=== PATIENT | male | born 1970 | race American Indian/Alaskan Native ===

== ENCOUNTER 2017-01-07 18:16 | Emergency (ER) | payer OTHER ==
[2017-01-07 19:19] LABS: Basophils % (Auto) 0.8 % (0.0-1.8); Eosinophils % (Auto) 2.1 % (0.0-4.3); Hematocrit 42.5 % (35.5-45.6); Hemoglobin 14.3 gm/dl (11.8-15.2); Mean Corpuscular HGB Conc 34 % (32-34); Mean Corpuscular Hemoglobin 26 pg (28-32); Mean Corpuscular Volume 78 fl (84-94); Platelet Count 404 K/mm3 (140-440); Red Blood Count 5.45 M/mm3 (3.65-5.03); Red Cell Distribution Width 16.9 % (13.2-15.2); White Blood Count 9.7 K/mm3 (4.5-11.0)
[2017-01-07 19:33] LABS: Anion Gap 15 mmol/L; BUN/Creatinine Ratio 18.75; Blood Urea Nitrogen 15 mg/dL (9-20); Calcium 8.9 mg/dL (8.4-10.2); Carbon Dioxide 28 mmol/L (22-30); Chloride 101.4 mmol/L (98-107); Glucose 160 mg/dL (75-100); Potassium 4.1 mmol/L (3.6-5.0); Sodium 140 mmol/L (137-145)
[2017-01-07 19:34] LABS: Creatine Kinase MB 3.6 ng/mL (0.0-4.0)
--- NOTE | 2017-01-07 20:41 | XRay Report ---
FINAL REPORT EXAM: XR SHOULDER 2 LT HISTORY: left shoulder pain TECHNIQUE: Left shoulder three views 4 images PRIORS: CT scan from 12/26/2015 FINDINGS: Visualized portion of the left lung appears clear. Bone mineralization appears within normal limits. Healed left rib fractures and left scapula fracture are noted. No acute fracture or subluxation is identified. No gross abnormality is seen in the visualized soft tissues. IMPRESSION: 1. Healed fractures are seen in the left scapula and left ribs. 2. No definite acute fracture is identified.
--- NOTE | 2017-01-07 20:42 | XRay Report ---
FINAL REPORT EXAM: XR CHEST ROUTINE 2V HISTORY: CP TECHNIQUE: PA and lateral chest radiographs PRIORS: Chest CT from 12/26/2015 FINDINGS: No focal consolidations are seen in the lungs and there are no pleural effusions.The cardiomediastinal silhouette is within normal limits for size and contour. Healed fractures are seen in the left scapula and left ribs. There are surgical clips in the upper abdomen. IMPRESSION: 1. No definite radiographic evidence of acute cardiopulmonary disease. 2. Healed fractures are noted in the left scapula and left ribs.
[2017-01-07] MEDS ORDERED: MORPHINE IM ONE (21:07)
[2017-01-07] MEDS ORDERED: ZOFRAN ODT PO ONE (21:07)
--- NOTE | 2017-01-07 21:16 | Emergency Department Report ---
HPI - General Chief Complaint: Chest Pain Time Seen by Provider: 01/07/17 20:51 - HPI HPI: The patient is a 46-year-old male who presents for evaluation of chest pain and shoulder pain. The patient has a history of chronic left-sided pain. The patient reports 1 week of left-sided chest pain, aching quality, moderate severity, exacerbated with movement of the left arm, and associated with left shoulder pain recurrence, 10/10 in severity, throbbing in quality, also exacerbated with movement of the left arm at the shoulder joint. The patient denies fever, trauma to the left shoulder or chest, dyspnea, hemoptysis, unilateral leg swelling, recent immobilization, history of DVT or PE, recent cancer. ED Past Medical Hx - Past Medical History Previous Medical History?: Yes Hx Hypertension: No Hx Congestive Heart Failure: No Hx Diabetes: Yes (DIAGNOSED 7 YEARS AGO) Hx Deep Vein Thrombosis: No Hx Liver Disease: (gall-bladder disease) Hx Asthma: No Hx COPD: No Hx HIV: No - Surgical History Past Surgical History?: Yes Hx Pacemaker: No Hx Internal Defibrillator: No Additional Surgical History: Spleen removal 12/30/2015 - Social History Smoking Status: Never Smoker Substance Use Type: None - Medications Home Medications: Home Medications Medication Instructions Recorded Confirmed Last Taken Type glipiZIDE [Glucotrol] 5 mg PO QDAY 12/26/15 01/08/16 Unknown History metFORMIN [Glucophage] 500 mg PO QDAY 12/26/15 01/08/16 Unknown History HYDROcodone/APAP 5-325 [[place] 1 each PO Q6HR PRN #24 tablet 01/04/16 01/08/16 Unknown Rx 5/325] HYDROcodone/APAP 7.5-325 [[place] 1 each PO Q8HR PRN #12 tablet 01/07/17 Unknown Rx 7.5-325 mg TAB] Ibuprofen [Motrin] 800 mg PO Q8HR PRN #15 tablet 01/07/17 Unknown Rx ED Review of Systems ROS: Stated complaint: LEFT SHOULDER PAIN Other details as noted in HPI Constitutional: denies: fever ENT: denies: throat or neck pain Respiratory: denies: cough, shortness of breath Cardiovascular: reports chest pain Endocrine: denies unexplained weight loss or gain Gastrointestinal: denies: abdominal pain, nausea Genitourinary: denies: dysuria Musculoskeletal: reports left shoulder pain denies: leg swelling Skin: denies: rash Neurological: denies: headache Hematological/Lymphatic: denies: easy bleeding or easy bruising Psych: denies sadness or hopelessness Physical Exam - Physical Exam Vital Signs: Vital Signs 01/07/17 01/07/17 18:40 21:05 Temperature 98.1 F 97.5 F L Pulse Rate 68 64 Respiratory 18 12 Rate Blood Pressure 165/104 Blood Pressure 125/94 [Left] O2 Sat by Pulse 99 99 Oximetry Physical Exam: General: well-nourished, well-developed, no acute distress Head: Normocephalic, atraumatic Eyes: normal sclera ENT: Mucous membranes are pink and moist Neck: trachea midline, neck supple, No neck stiffness, no cervical adenopathy Respiratory: Breath sounds equal bilaterally, no wheezing, rales, or rhonchi Cardio: S1 and S2 present, no murmurs, rubs, gallops, capillary refill is brisk Abdomen: Normoactive bowel sounds, soft abdomen, no rigidity, no guarding or rebound tenderness Musc: Tenderness to palpation presents to the caudal medial trapezius and posterior left shoulder, full passive and active range of motion to the left shoulder intact, no shoulder impingement, no redness, swelling, warmth to the left shoulder, no midline cervical or thoracic spinous process tenderness, no spinous step-off or obvious deformity, No pitting edema Skin: No rash Neuro: no facial drooping, normal speech Psych: Normal affect ED Course Vital Signs 01/07/17 01/07/17 18:40 21:05 Temperature 98.1 F 97.5 F L Pulse Rate 68 64 Respiratory 18 12 Rate Blood Pressure 165/104 Blood Pressure 125/94 [Left] O2 Sat by Pulse 99 99 Oximetry ED Medical Decision Making - Lab Data Result diagrams: 01/07/17 19:03 01/07/17 19:03 - Medical Decision Making The patient was seen and examined by myself. The patient is placed on a cardiac rehabilitation specialist and continuous pulse ox. On initial evaluation, the patient was found to be in no distress. EKG was negative for findings suggestive of acute cardiac infarct. Labs and imaging are obtained. ChThe patient is given an IM dose of morphine for his pain. est x-ray is negative for pneumothorax, focal consolidation, pulmonary vascular congestion, pleural effusion, or other obvious acute cardiopulmonary disease process. X-ray of the left shoulder reveals old well-healed scapulary rib fractures, and was negative for any new fractures. Lab results were non-concerning including levels of troponin, WBC, hemoglobin, hematocrit, electrolytes, renal function. The patient was reevaluated and reported that their symptoms were markedly improved. As the patient has a SELINA risk score less than 2, and a well's score less than 2, the patient is at low risk of ACS or pulmonary emboli etiology of their symptoms. The patient is stable for discharge with outpatient follow-up. The patient is given follow-up and return instructions. The patient expressed understanding and agreed with the plan. The patient is discharged in stable condition. Critical care attestation.: If time is entered above; I have spent that time in minutes in the direct care of this critically ill patient, excluding procedure time. ED Disposition Clinical Impression: Acute pain of left shoulder, Acute chest pain Disposition: DISCHARGED TO HOME OR SELFCARE Is pt being admited?: No Does the pt Need Aspirin: No Condition: Stable Instructions: Arthralgia (ED), Muscle Strain (ED), Musculoskeletal Pain (ED), Chest Pain (ED) Referrals: PRIMARY CARE, [Primary Care Provider] - 3-5 Days Time of Disposition: 21:09
[2017-01-07 21:42] VITALS: BP 154/96
== END 2017-01-07 21:40 | disposition home or self-care (01) ==
LOC: ED 18:16
DX: M25.512 Pain in left shoulder (principal); R07.9 Chest pain, unspecified; E11.9 Type 2 diabetes mellitus without complications
CPT/HCPCS: 36415; 71020; 73030; 80048; 82550; 82553; 82962; 84484; 85025; 93005; 93010; 96372; 99285; J2270; Q0162